=== PATIENT | female | born 1990 | race Caucasian/White ===

== ENCOUNTER 2017-03-06 19:57 | Emergency (ER) | payer SELFPAY ==
[~2017-03-06] VITALS: Ht 162.6 cm; Wt 52.2 kg
--- NOTE | 2017-03-06 20:27 | NUR ---
Pt c/o feeling like she was going to pass out during about [address] home, began getting very anxious about it. Also c/o minor left sided CP. Pt denies SOB, dizziness currently, n/v, no other complaints, no distress noted, but pt appears moderately anxious.
[2017-03-06] MEDS ORDERED: IV NORMAL SALINE 1000 ML BAG IV ONE ×2 (20:30→22:45)
[2017-03-06] MEDS ORDERED: ONDANSETRON 4 MG/2 ML VIAL IV ONE (20:30)
[2017-03-06 20:45] LABS: CREATININE 0.7 mg/dL (0.6-1.3); POTASSIUM 3.5 mmol/L (3.5-5.1)
[2017-03-06 20:48] LABS: BASOPHILS # (AUTO) 0.1 K/uL (0.0-8.0); BASOPHILS % (AUTO) 0.8 % (0.0-2.0); EOSINOPHILS # (AUTO) 0.1 K/uL (0.0-0.7); HEMATOCRIT 43.1 % (37-47); HEMOGLOBIN 14.5 G/DL (12.0-16.0); LYMPHOCYTES # (AUTO) 1.7 K/UL (0.8-4.8); MEAN CORPUSCULAR HEMOGLOBIN 28.2 UUG (27.0-31.0); MEAN CORPUSCULAR HGB CONC 34 g/dL (32.0-37.0); MEAN CORPUSCULAR VOLUME 83.8 FL (81.0-99.0); MONOCYTES # (AUTO) 0.4 K/UL (0.1-1.30); MONOCYTES % (AUTO) 6.2 % (0.0-11.0); NEUTROPHILS # (AUTO) 4.7 K/UL (1.8-8.9); PLATELET COUNT (AUTO) 312 K/UL (150-450); RED BLOOD CELL COUNT(AUTO) 5.14 MIL/UL (4.2-5.4)
[2017-03-06 20:50] LABS: BILIRUBIN,DIRECT 0.2 mg/dL (0.0-0.2); BILIRUBIN,TOTAL 0.9 mg/dL (0.2-1.0); TOTAL PROTEIN, SERUM 8.8 g/dL (6.4-8.2)
[2017-03-06] MEDS ORDERED: ONDANSETRON 4 MG/2 ML VIAL ONE (20:59)
[2017-03-06 22:06] LABS: *BILIRUBIN,URIN NEGATIVE (NEGATIVE); *BLOOD, URINE NEGATIVE (NEGATIVE); *KETONES,URINE 3+ (NEGATIVE); *PROTEIN,URINE TRACE (NEGATIVE); *UROBILINOGEN,URINE 0.2 E.U./dl (NORMAL); LEUKOCYTE ESTERASE ,URINE NEGATIVE (NEGATIVE); NITRITE, URINE NEGATIVE (NEGATIVE); UGLUCOSE NEGATIVE (NEGATIVE)
[2017-03-06 22:14] LABS: *URINE HCG, QUAL NEGATIVE (NEGATIVE)
[2017-03-06 22:18] LABS: *CLARITY,URINE CLOUDY (CLEAR); *COLOR,URINE YELLOW (YELLOW)
[2017-03-06 22:19] LABS: MUCUS,URINE MANY /LPF (0-FEW); SQUAMOUS EPITHELIAL CELL,UR MODERATE /HPF (NONE SEEN); URINE AMORPHOUS PHOSPHATES MANY /HPF
[2017-03-06] MEDS ORDERED: ACETAMINOPHEN 650 MG/20.3 ML LIQUID UDC PO ONE (22:45)
[2017-03-06] MEDS ORDERED: MECLIZINE HCL 25 MG TABLET PO ONE (22:45)
[2017-03-06] MEDS ORDERED: MECLIZINE HCL 25 MG TABLET ONE (23:02)
[2017-03-06] MEDS ORDERED: ACETAMINOPHEN 325 MG TABLET ONE (23:02)
--- NOTE | 2017-03-06 23:39 | NUR ---
IV removed intact, site okay, bandaged. Gave pt RX and d/c instructions, verbalized understanding.
[2017-03-06 23:41] VITALS: BP 126/83
== END 2017-03-06 23:42 | disposition home or self-care (01) ==
LOC: ER 20:00
DX: F41.9 Anxiety disorder, unspecified (principal); E86.0 Dehydration; F32.9 Major depressive disorder, single episode, unspecified
CPT/HCPCS: 36415; 83690; 84703; 85025; 93005; A4663; J2405; J7030; J8597

== ENCOUNTER 2018-03-20 08:14 | Emergency (ER) | END 2018-03-20 09:25 | disposition home or self-care (01) | DX: J02.8 Acute pharyngitis due to other specified organisms (principal) ==

== ENCOUNTER 2018-08-30 12:04 | Emergency (ER) | payer OTHER ==
[~2018-08-30] VITALS: Ht 162.6 cm; Wt 59.0 kg
[2018-08-30] MEDS ORDERED: ONDANSETRON ODT 4 MG TAB.RAPDIS SL ONE (12:30)
[2018-08-30] MEDS ORDERED: PANTOPRAZOLE SODIUM 40 MG TABLET.DR PO ONE ×2 (12:30→12:39)
[2018-08-30] MEDS ORDERED: MAG HYDROX/AL HYDROX/SIMETH 30 ML LIQUID UDC PO ONE (12:30)
[2018-08-30] MEDS ORDERED: LIDOCAINE VISCUS 2% 15 ML UDC MM ONE (12:30)
[2018-08-30 12:36] LABS: *URINE HCG, QUAL NEGATIVE (NEGATIVE)
[2018-08-30] MEDS ORDERED: ONDANSETRON ODT 4 MG TAB.RAPDIS ONE (12:38)
[2018-08-30] MEDS ORDERED: MAG HYDROX/AL HYDROX/SIMETH 30 ML LIQUID UDC ONE (12:39)
[2018-08-30] MEDS ORDERED: LIDOCAINE VISCUS 2% 15 ML UDC ONE (12:39)
--- NOTE | 2018-08-30 13:06 | NUR ---
Patient discharged to home in stable conditon. Written and verbal after care instructions given. Patient verbalizes understanding of instructions.
== END 2018-08-30 13:07 | disposition home or self-care (01) ==
LOC: ER 12:06
DX: K21.9 Gastro-esophageal reflux disease without esophagitis (principal)
CPT/HCPCS: 84703; A4663; Q0162

== ENCOUNTER 2018-08-31 01:23 | Emergency (ER) | payer OTHER ==
[~2018-08-31] VITALS: Ht 162.6 cm; Wt 59.0 kg
--- NOTE | 2018-08-31 01:40 | NUR ---
Patient came for c/o htn, abdominal pain, and is requesting for blood test.
--- NOTE | 2018-08-31 01:46 | NUR ---
Pt provided urine sample, sent to lab.
[2018-08-31 01:55] LABS: BASOPHILS # (AUTO) 0.1 K/uL (0.0-8.0); BASOPHILS % (AUTO) 0.7 % (0.0-2.0); EOSINOPHILS # (AUTO) 0.2 K/uL (0.0-0.7); HEMATOCRIT 41.3 % (31.2-41.9); HEMOGLOBIN 13.7 g/dL (10.9-14.3); LYMPHOCYTES # (AUTO) 2.8 K/uL (20.0-40.0); MEAN CORPUSCULAR HEMOGLOBIN 27.8 uug (24.7-32.8); MEAN CORPUSCULAR HGB CONC 33 g/dL (32.3-35.6); MEAN CORPUSCULAR VOLUME 83.8 fL (75.5-95.3); MONOCYTES % (AUTO) 10.2 % (0.0-11.0); NEUTROPHILS # (AUTO) 5.6 K/uL (1.8-8.9); NEUTROPHILS % (AUTO) 58.1 % (38.5-71.5); PLATELET COUNT (AUTO) 353 K/uL (179-408); RED BLOOD CELL COUNT(AUTO) 4.92 MIL/uL (3.63-4.92); WHITE BLOOD COUNT (AUTO) 9.7 K/uL (3.8-11.8)
[2018-08-31 01:59] LABS: CREATININE 0.8 mg/dL (0.6-1.3)
[2018-08-31 02:05] LABS: BILIRUBIN,DIRECT 0.1 mg/dL (0.0-0.2); BILIRUBIN,TOTAL 0.5 mg/dL (0.2-1.0); TOTAL PROTEIN, SERUM 8.6 g/dL (6.4-8.2)
[2018-08-31 02:07] LABS: *URINE HCG, QUAL NEGATIVE (NEGATIVE)
--- NOTE | 2018-08-31 02:33 | NUR ---
Patient discharged to home in stable conditon. Written and verbal after care instructions given. Patient verbalizes understanding of instructions. Patient ambulated with stable gait.
[2018-08-31 02:36] VITALS: BP 120/63
== END 2018-08-31 02:42 | disposition home or self-care (01) ==
LOC: ER 01:24
DX: R10.13 Epigastric pain (principal); F41.9 Anxiety disorder, unspecified; R42 Dizziness and giddiness; R11.10 Vomiting, unspecified; K21.9 Gastro-esophageal reflux disease without esophagitis
CPT/HCPCS: 36415; 83690; 84703; 85025; 93005; A4663

== ENCOUNTER 2018-09-01 00:32 | Emergency (ER) | payer OTHER ==
[~2018-09-01] VITALS: Ht 162.6 cm; Wt 59.0 kg
--- NOTE | 2018-09-01 00:44 | NUR ---
PATIENT CAME IN AT THE ER WITH CHIEF COMPLAINT OF RIGHT THIGH PAIN. PATIENT REPORTED THAT AN HOUR AGO, SHE WAS DOING A FRONTAL SPLIT AND HURT HER RIGHT THIGH. PATIENT AAOX4. IN NO ACUTE DISTRESS. DENIES ANY SOB. NO CARDIOVASCULAR CONCERN. NO /GI CONCERN. BED ON LOCK AND LOW POSITION. FALL PRECAUTION PER PROTOCOL.
--- NOTE | 2018-09-01 00:49 | NUR ---
GALI BREWER at bedside for MSE.
--- NOTE | 2018-09-01 01:00 | NUR ---
GALI BREWER AT BEDSIDE.
--- NOTE | 2018-09-01 01:06 | NUR ---
GALI BREWER AT BEDSIDE.
[2018-09-01] MEDS ORDERED: ACETAMINOPHEN ES 500 MG TABLET ONE (01:14)
[2018-09-01] MEDS ORDERED: ACETAMINOPHEN 325 MG TABLET PO ONE (01:15)
--- NOTE | 2018-09-01 01:21 | NUR ---
Patient discharged to home in stable conditon. Written and verbal after care instructions given. Patient verbalizes understanding of instructions. Patient ambulated with crutches on steady gait. All belongings taken by patient.
[2018-09-01 01:22] VITALS: BP 116/60
== END 2018-09-01 01:23 | disposition home or self-care (01) ==
LOC: ER 00:37
DX: S76.311A Strain of muscle, fascia and tendon of the posterior muscle group at thigh level, right thigh, initial encounter (principal); R10.13 Epigastric pain; R42 Dizziness and giddiness; K21.9 Gastro-esophageal reflux disease without esophagitis; X50.1XXA Overexertion from prolonged static or awkward postures, initial encounter; Y93.89 Activity, other specified; Y92.89 Other specified places as the place of occurrence of the external cause; Y99.8 Other external cause status
CPT/HCPCS: 73551; A4663; A9150

== ENCOUNTER 2018-10-10 22:36 | Emergency (ER) | payer OTHER ==
[~2018-10-10] VITALS: Ht 162.6 cm; Wt 59.0 kg
[2018-10-11 01:08] LABS: *BILIRUBIN,URIN NEGATIVE (NEGATIVE); *CLARITY,URINE CLEAR (CLEAR); *COLOR,URINE YELLOW (YELLOW); *KETONES,URINE TRACE (NEGATIVE); *UROBILINOGEN,URINE 0.2 E.U./dl (NORMAL); LEUKOCYTE ESTERASE ,URINE NEGATIVE (NEGATIVE); NITRITE, URINE NEGATIVE (NEGATIVE); UGLUCOSE NEGATIVE (NEGATIVE)
[2018-10-11 01:09] LABS: *BLOOD, URINE TRACE (NEGATIVE); BACTERIA,URINE NONE SEEN /HPF (NONE SEEN); RBC,URINE 0-3 /HPF (0-3); SQUAMOUS EPITHELIAL CELL,UR FEW /HPF (NONE SEEN); WBC,URINE 0-3 /HPF (0-3)
[2018-10-11] MEDS ORDERED: ACETAMINOPHEN 325 MG TABLET PO ONE (01:45)
[2018-10-11] MEDS ORDERED: FLUCONAZOLE 100 MG TABLET PO ONE (01:45)
[2018-10-11] MEDS ORDERED: FLUCONAZOLE 100 MG TABLET ONE (01:48)
[2018-10-11] MEDS ORDERED: ACETAMINOPHEN 325 MG TABLET ONE (01:54)
[2018-10-11 02:06] VITALS: BP 120/62
== END 2018-10-11 02:09 | disposition home or self-care (01) ==
LOC: ER 22:38
DX: O03.5 Genital tract and pelvic infection following complete or unspecified spontaneous abortion (principal); K21.9 Gastro-esophageal reflux disease without esophagitis; F41.9 Anxiety disorder, unspecified; F32.9 Major depressive disorder, single episode, unspecified
CPT/HCPCS: A4663

== ENCOUNTER 2019-04-22 10:45 | Emergency (ER) | payer OTHER ==
[~2019-04-22] VITALS: Ht 162.6 cm; Wt 65.8 kg
[2019-04-22] MEDS ORDERED: ONDANSETRON 4 MG/2 ML VIAL IV ONE (11:30)
[2019-04-22] MEDS ORDERED: PANTOPRAZOLE SODIUM 40 MG VIAL IV ONE (11:30)
[2019-04-22] MEDS ORDERED: IV NORMAL SALINE 1000 ML BAG IV ONE (11:30)
--- NOTE | 2019-04-22 11:36 | NUR ---
PATIENT IS REFUSING IV AND BLOOD DRAW STATING "I HAVE A FEAR OF NEEDLES"... DR AHUJA NOTIFIED. WILL GIVE PO MEDS ORDERED.
[2019-04-22] MEDS ORDERED: ONDANSETRON 4 MG/2 ML VIAL ONE (11:38)
[2019-04-22] MEDS ORDERED: PANTOPRAZOLE SODIUM 40 MG VIAL ONE (11:38)
[2019-04-22] MEDS ORDERED: LOPERAMIDE HCL 2 MG CAPSULE PO ONE (11:45)
[2019-04-22] MEDS ORDERED: ONDANSETRON ODT 4 MG TAB.RAPDIS SL ONE (12:00)
[2019-04-22] MEDS ORDERED: PANTOPRAZOLE SODIUM 40 MG TABLET.DR PO ONE ×2 (12:00→12:07)
[2019-04-22] MEDS ORDERED: ONDANSETRON ODT 4 MG TAB.RAPDIS ONE (12:06)
[2019-04-22] MEDS ORDERED: LOPERAMIDE HCL 2 MG CAPSULE ONE ×2 (12:07→12:08)
--- NOTE | 2019-04-22 12:33 | NUR ---
PATIENT STATES NAUSEA HAS DIMINISHED.
--- NOTE | 2019-04-22 12:44 | NUR ---
PATIENT IS AWAKE AND ALERT IN NO DISTRESS.
[2019-04-22 13:10] LABS: *URINE HCG, QUAL NEGATIVE (NEGATIVE)
--- NOTE | 2019-04-22 13:23 | NUR ---
PATIENT STATES NAUSEA AND PAIN HAVE DIMINISHED AND SHE WAS ABLE TO DRINK 12 OZ OF WATER WITH NO NAUSEA.
--- NOTE | 2019-04-22 13:23 | NUR ---
DC, RX AND FOLLOW UP INSTRUCTIONS GIVEN AND EXPLAINED TO PATIENT WHO STATES SHE UNDERSTANDS ALL INSTRUCTIONS.
[2019-04-22 13:27] VITALS: BP 112/72
== END 2019-04-22 13:28 | disposition home or self-care (01) ==
LOC: ER 10:45
DX: R11.10 Vomiting, unspecified (principal); R19.7 Diarrhea, unspecified; R10.13 Epigastric pain; K21.9 Gastro-esophageal reflux disease without esophagitis; F41.9 Anxiety disorder, unspecified; F32.9 Major depressive disorder, single episode, unspecified
CPT/HCPCS: 84703; 99284; C9113; A4663; J2405; Q0162

== ENCOUNTER 2019-11-07 23:32 | Emergency (ER) | payer OTHER ==
[~2019-11-07] VITALS: Ht 167.6 cm; Wt 54.4 kg
--- NOTE | 2019-11-07 23:46 | NUR ---
at bedside for MSE
--- NOTE | 2019-11-08 00:05 | NUR ---
uring and covid swab collect and sent to lab, no signs of distress noted, no complaints of pain
[2019-11-08] MEDS: IBUPROFEN 600 MG TABLET PO ONE ×2 (00:18→00:22)
[2019-11-08] MEDS ORDERED: IBUPROFEN 600 MG TABLET ONE (00:20)
[2019-11-08] MEDS ORDERED: ACETAMINOPHEN ES 500 MG TABLET ONE (00:25)
[2019-11-08] MEDS ORDERED: ACETAMINOPHEN ES 500 MG TABLET PO ONE (00:30)
[2019-11-08 00:32] LABS: *URINE HCG, QUAL NEGATIVE (NEGATIVE)
--- NOTE | 2019-11-08 00:45 | NUR ---
Patient discharged to home in stable condition. Noted ambuating in steady manner Written and verbal after care instructions given. All belongings taken with patient. NO complaints of pain, signs of distress or fever noted on dischrage. Given RX. Patient verbalizes understanding of instructions. Stressed follow up or return to ER for worsening s/s.
[2019-11-08 00:50] VITALS: BP 120/76
== END 2019-11-08 00:45 | disposition home or self-care (01) ==
LOC: ER 23:37
DX: R51 Headache (principal); Z20.828 Contact with and (suspected) exposure to other viral communicable diseases
CPT/HCPCS: 84703; 99283; U0003; A4663; A9150

== ENCOUNTER 2020-03-17 20:14 | Emergency (ER) | payer OTHER ==
[~2020-03-17] VITALS: Ht 162.6 cm; Wt 61.2 kg
[2020-03-17] MEDS ORDERED: FAMOTIDINE 20 MG TABLET PO ONE (20:30)
[2020-03-17] MEDS ORDERED: ACETAMINOPHEN 325 MG TABLET PO ONE (20:30)
[2020-03-17] MEDS ORDERED: MAG HYDROX/AL HYDROX/SIMETH 30 ML LIQUID UDC PO ONE (20:30)
[2020-03-17] MEDS ORDERED: METOCLOPRAMIDE HCL 10 MG TABLET PO ONE (20:30)
[2020-03-17] MEDS ORDERED: IV NORMAL SALINE 1000 ML BAG IV ONE (20:30)
[2020-03-17] MEDS ORDERED: METOCLOPRAMIDE HCL 10 MG/2 ML VIAL IV ONE ×2 (20:45→22:00)
[2020-03-17] MEDS ORDERED: FAMOTIDINE. 20 MG/2 ML VIAL IV ONE (20:45)
[2020-03-17 21:06] LABS: *BILIRUBIN,URIN NEGATIVE (NEGATIVE); *BLOOD, URINE NEGATIVE (NEGATIVE); *CLARITY,URINE CLEAR (CLEAR); *COLOR,URINE YELLOW (YELLOW); *KETONES,URINE TRACE (NEGATIVE); *UROBILINOGEN,URINE 0.2 E.U./dl (NORMAL); LEUKOCYTE ESTERASE ,URINE NEGATIVE (NEGATIVE); NITRITE, URINE NEGATIVE (NEGATIVE); UGLUCOSE NEGATIVE (NEGATIVE)
[2020-03-17 21:08] LABS: *URINE HCG, QUAL NEGATIVE (NEGATIVE)
[2020-03-17 21:18] LABS: *AMPHETAMINE, URINE NEGATIVE (NEGATIVE); *CANNABINOID, URINE NEGATIVE (NEGATIVE); *COCCAINE, URINE NEGATIVE (NEGATIVE); *OPIATE, URINE NEGATIVE (NEGATIVE); *PHENCYCLIDINE SCREEN,URINE NEGATIVE (NEGATIVE)
[2020-03-17] MEDS ORDERED: diphenhydrAMINE 50 MG/1 ML VIAL IV ONE (21:30)
[2020-03-17] MEDS ORDERED: DEXAMETHASONE SOD PHOSPHATE 4 MG INJ IV ONE (21:30)
[2020-03-17] MEDS ORDERED: KETOROLAC TROMETHAMINE 15 MG INJ IVP ONE (21:30)
[2020-03-17] MEDS ORDERED: ACETAMINOPHEN 325 MG TABLET ONE (21:34)
[2020-03-17] MEDS ORDERED: MAG HYDROX/AL HYDROX/SIMETH 30 ML LIQUID UDC ONE (21:35)
[2020-03-17 21:42] LABS: BASOPHILS # (AUTO) 0.1 K/uL (0.0-8.0); BASOPHILS % (AUTO) 0.7 % (0.0-2.0); CREATININE 0.7 mg/dL (0.6-1.3); EOSINOPHILS # (AUTO) 0.1 K/uL (0.0-0.7); EOSINOPHILS % (AUTO) 0.7 % (0.0-7.0); HEMATOCRIT 43.3 % (31.2-41.9); HEMOGLOBIN 14.6 g/dL (10.9-14.3); LYMPHOCYTES # (AUTO) 2.3 K/uL (20.0-40.0); MEAN CORPUSCULAR HEMOGLOBIN 28.9 uug (24.7-32.8); MEAN CORPUSCULAR HGB CONC 34 g/dL (32.3-35.6); MEAN CORPUSCULAR VOLUME 85.9 fL (75.5-95.3); MONOCYTES # (AUTO) 0.9 K/uL (2.0-10.0); MONOCYTES % (AUTO) 8.4 % (0.0-11.0); NEUTROPHILS # (AUTO) 7.1 K/uL (1.8-8.9); NEUTROPHILS % (AUTO) 68.2 % (38.5-71.5); PLATELET COUNT (AUTO) 363 K/uL (179-408); POTASSIUM 3.5 mmol/L (3.5-5.1); RED BLOOD CELL COUNT(AUTO) 5.05 MIL/uL (3.63-4.92); WHITE BLOOD COUNT (AUTO) 10.4 K/uL (3.8-11.8)
[2020-03-17 21:48] LABS: BILIRUBIN,TOTAL 0.6 mg/dL (0.2-1.0); TOTAL PROTEIN, SERUM 9.4 g/dL (6.4-8.2)
--- NOTE | 2020-03-17 22:06 | NUR ---
Refusal of medications; patient initially denied reglan for her headache symptoms. Patient stated that she continued to have a headache; and then requested to have the reglan. Once the reglan was brought to the room, the patient refused reglan again. The reglan was wasted afterwards.
[2020-03-17] MEDS ORDERED: METOCLOPRAMIDE HCL 10 MG/2 ML VIAL ONE (22:07)
--- NOTE | 2020-03-17 22:11 | NUR ---
MSE COMPLETED, PT'S IV D/C'D INTACT, PT GIVEN ACI/RX 2. PT GOT DRESSED, AMBULATED W/O DIFF, TOOK ALL BELONGINGS.
[2020-03-17 22:13] VITALS: BP 107/47
== END 2020-03-17 22:14 | disposition home or self-care (01) ==
LOC: ER 20:14
DX: R51.9 Headache, unspecified (principal); R11.0 Nausea; R10.13 Epigastric pain; F41.9 Anxiety disorder, unspecified; K21.9 Gastro-esophageal reflux disease without esophagitis
CPT/HCPCS: 36415; 71045; 83690; 84703; 85025; A4663; J2765; J7030

== ENCOUNTER 2021-10-10 02:36 | Emergency (ER) | payer OTHER ==
[~2021-10-10] VITALS: Ht 160 cm; Wt 57.6 kg
[2021-10-10] MEDS ORDERED: ACETAMINOPHEN ES 500 MG TABLET PO ONE ×2 (03:00→03:15)
--- NOTE | 2021-10-10 03:00 | NUR ---
Dr Lucero in room MSE in progress
--- NOTE | 2021-10-10 03:01 | NUR ---
Patient is a/ox4, NAD noted. Patient is able to walk with steady gait
[2021-10-10] MEDS ORDERED: ACETAMINOPHEN ES 500 MG TABLET ONE ×2 (03:05→03:11)
[2021-10-10] MEDS ORDERED: IV D5LR 1,000 ML IV ONE (03:15)
--- NOTE | 2021-10-10 03:50 | NUR ---
Patient able to walk to the restroom with steady gait
[2021-10-10 04:11] VITALS: BP 135/78
--- NOTE | 2021-10-10 04:11 | NUR ---
Patient discharged to home in stable condition. Written and verbal after care instructions given. Patient verbalizes understanding of instructions. Stressed follow up or return to ER for worsening s/s. Patient is a/ox4, NAD noted. Patient is able to walk with steady gait
== END 2021-10-10 04:12 | disposition home or self-care (01) ==
LOC: ER 02:41
DX: J02.9 Acute pharyngitis, unspecified (principal); Z20.822 Contact with and (suspected) exposure to COVID-19; R03.0 Elevated blood-pressure reading, without diagnosis of hypertension
CPT/HCPCS: 86403; 87070; A4663; A9150

== ENCOUNTER 2021-10-30 14:55 | Emergency (ER) | payer OTHER ==
[~2021-10-30] VITALS: Ht 162.6 cm; Wt 56.2 kg
--- NOTE | 2021-10-30 15:23 | NUR ---
PT IS IN ROOM #3. DR DELGADO EVALUATED THE PT.
[2021-10-30] MEDS ORDERED: ACETAMINOPHEN 325 MG TABLET ONE (15:45)
[2021-10-30] MEDS ORDERED: ACETAMINOPHEN 325 MG TABLET PO ONE (15:45)
[2021-10-30] MEDS ORDERED: IBUP-1955 PO (15:48)
--- NOTE | 2021-10-30 16:14 | NUR ---
Patient discharged to home in stable condition. Written and verbal after care instructions given. Patient verbalizes understanding of instructions. Stressed follow up or return to ER for worsening s/s.
== END 2021-10-30 16:15 | disposition home or self-care (01) ==
LOC: ER 14:55
DX: U07.1 COVID-19 (principal); J06.9 Acute upper respiratory infection, unspecified; F41.9 Anxiety disorder, unspecified; K21.9 Gastro-esophageal reflux disease without esophagitis; M25.50 Pain in unspecified joint
CPT/HCPCS: 99283; 87400; 36415; U0003; C9803; A4663

== ENCOUNTER 2022-02-05 19:35 | Emergency (ER) | payer OTHER ==
[~2022-02-05] VITALS: Ht 162.6 cm; Wt 54.4 kg
[~2022-02-05 19:35] MED LIST: IBUP-1955 PO
--- NOTE | 2022-02-05 20:00 | NUR ---
Dr Nunes at bedside, MSE in progress
[2022-02-05] MEDS ORDERED: ASPIRIN 325 MG TABLET ONE (20:21)
[2022-02-05] MEDS ORDERED: ASPIRIN 325 MG TABLET PO ONE (20:30)
[2022-02-05 20:34] LABS: HEMATOCRIT 36.7 % (31.2-41.9); MEAN CORPUSCULAR HEMOGLOBIN 28.9 uug (24.7-32.8); MEAN CORPUSCULAR VOLUME 85.4 fL (75.5-95.3); PLATELET COUNT (AUTO) 267 K/uL (179-408)
[2022-02-05 20:42] LABS: CARBON DIOXIDE 22 mmol/L (21-32); CHLORIDE 101 mmol/L (98-107); CREATININE 0.7 mg/dL (0.6-1.3); GLUCOSE 86 mg/dL (74-106); POTASSIUM 3.2 mmol/L (3.5-5.1); UREA NITROGEN, BLOOD 9 mg/dL (7-18)
[2022-02-05 20:51] LABS: ALANINE AMINOTRANSFERASE 21 U/L (14-59); ALKALINE PHOSPHATASE 63 U/L (50-136); ASPARTATE AMINOTRANSFERASE 14 U/L (15-37); BILIRUBIN,DIRECT 0.1 mg/dL (0.0-0.2); BILIRUBIN,TOTAL 0.4 mg/dL (0.2-1.0); TOTAL PROTEIN, SERUM 7.9 g/dL (6.4-8.2)
[2022-02-05] MEDS ORDERED: DICYCLOMINE HCL LIQ 10 MG/5 ML UDC PO ONE (21:00)
[2022-02-05] MEDS ORDERED: FAMOTIDINE 20 MG TABLET PO ONE (21:00)
[2022-02-05] MEDS ORDERED: FAMOTIDINE 20 MG TABLET ONE (21:00)
[2022-02-05] MEDS ORDERED: MAG HYDROX/AL HYDROX/SIMETH 30 ML LIQUID UDC ONE (21:00)
[2022-02-05] MEDS ORDERED: DICYCLOMINE HCL LIQ 10 MG/5 ML UDC ONE (21:00)
[2022-02-05] MEDS ORDERED: MAG HYDROX/AL HYDROX/SIMETH 30 ML LIQUID UDC PO ONE (21:00)
[2022-02-05] MEDS ORDERED: IBUPROFEN 600 MG TABLET ONE (21:00)
[2022-02-05] MEDS ORDERED: IBUPROFEN 600 MG TABLET PO ONE (21:00)
--- NOTE | 2022-02-05 21:07 | NUR ---
Patientis is able to walk to the restroom with steady gait
[2022-02-05 21:27] LABS: *URINE HCG, QUAL NEG (NEGATIVE)
--- NOTE | 2022-02-05 22:42 | NUR ---
Patient does not wish to proceed with medical care recommended by Dr. Nunes. Patient given information related to possible complications, up to and including , which could occur as a result of leaving the hospital at this time. Patient verbalizes understanding of risks involved due to leaving against medical advice. Patient has signed AMA form.
[2022-02-05 23:15] VITALS: BP 130/89
== END 2022-02-05 23:16 | disposition left against medical advice (07) ==
LOC: ER 19:36
DX: R07.9 Chest pain, unspecified (principal); R00.1 Bradycardia, unspecified; R79.1 Abnormal coagulation profile; E87.6 Hypokalemia; K21.9 Gastro-esophageal reflux disease without esophagitis
CPT/HCPCS: 36415; 71045; 84484; 84703; 85025; 93005; A4663